=== PATIENT | male | born 1965 | race Hispanic/Latino ===

== ENCOUNTER 2018-04-12 23:08 | Emergency (ER) | payer BC ==
[~2018-04-12] VITALS: Ht 175.3 cm; Wt 140.6 kg
[2018-04-12] MEDS ORDERED: SODIUM CHLORIDE 0.9% 1000ML 1,000 ML IV STA (23:26)
[2018-04-12 23:51] LABS: CLARITY,URINE CLOUDY (CLEAR); COLOR,URINE BROWN (YELLOW)
[2018-04-12 23:52] LABS: KETONES,URINE TRACE (NEGATIVE); LEUKOCYTE ESTERASE ,URINE 1+ (NEGATIVE); NITRITE,URINE POSITIVE (NEGATIVE); PROTEIN,URINE DIPSTICK 3+ (NEGATIVE)
[2018-04-12 23:53] LABS: BILIRUBIN,URINE 1+ (NEGATIVE); URINE UROBILINOGEN 4 mg/dL (0.2 - 1)
[2018-04-12 23:58] LABS: RBC,URINE >50 /HPF (0-5); WBC,URINE (MAN) >50 /HPF (0-5)
[2018-04-13] LABS: BACTERIA,URINE FEW /HPF; EPITHELIAL CELLS,URINE RARE /LPF
[2018-04-13 00:07] LABS: BASOPHILS % 0.4 % (0.0-1.0); EOSINOPHILS # (AUTO) 0.2 (0.0-0.4); EOSINOPHILS % 1.9 % (0.0-6.0); HEMATOCRIT 38.6 % (38.2-49.6); LYMPHOCYTES # (AUTO) 1.5 (1.0-3.2); LYMPHOCYTES % 13.6 % (18.0-39.1); MEAN CORPUSCULAR HEMOGLOBIN 31.2 pg (28-32); MEAN CORPUSCULAR HGB CONC 33.7 g/dL (31-35); MEAN CORPUSCULAR VOLUME 92.6 fL (81-99); MONOCYTES # (AUTO) 0.8 (0.2-0.8); MONOCYTES % 7.8 % (4.4-11.3); NEUTROPHILS # (AUTO) 8.1 (2.1-6.9); NEUTROPHILS % 75.6 % (38.7-80.0); PLATELET COUNT 173 x10e3/uL (140-360); RED BLOOD COUNT 4.17 x10e6/uL (4.3-5.7); RED CELL DISTRIBUTION WIDTH 13.5 % (11.7-14.4)
[2018-04-13] MEDS ORDERED: CEFTRIAXONE SOD 1 GM VIAL IV STA (00:10)
[2018-04-13 00:11] LABS: INR 1.16; PROTHROMBIN TIME 13.9 seconds (11.9-14.5)
[2018-04-13 00:12] LABS: PARTIAL THROMBOPLASTIN TIME 20.3 seconds (23.8-35.5)
[2018-04-13 00:19] LABS: ALANINE AMINOTRANSFERASE 23 IU/L (0-55); ALBUMIN 4.1 g/dL (3.5-5.0); ALBUMIN/GLOBULIN RATIO 1.3 (0.8-2.0); ALKALINE PHOSPHATASE 46 IU/L (40-150); ANION GAP 16.9 mmol/L (8-16); BLOOD UREA NITROGEN 22 mg/dL (7-26); BUN/CREATININE RATIO 13 (6-25); CALCIUM 9.4 mg/dL (8.4-10.2); CARBON DIOXIDE 19 mmol/L (22-29); CHLORIDE 107 mmol/L (98-107); CREATINE KINASE 117 IU/L (30-200); EST GLOMERULAR FILTRATION RATE 42 ML/MIN (60-); GLUCOSE 156 mg/dL (74-118); MAGNESIUM 1.9 MG/DL (1.3-2.1); POTASSIUM 3.9 mmol/L (3.5-5.1); SODIUM 139 mmol/L (136-145)
[2018-04-13 01:12] VITALS: BP 136/84
== END 2018-04-13 01:10 | disposition home or self-care (01) ==
LOC: ER 23:08
DX: N30.01 Acute cystitis with hematuria (principal); B96.89 Other specified bacterial agents as the cause of diseases classified elsewhere; E11.22 Type 2 diabetes mellitus with diabetic chronic kidney disease; I12.9 Hypertensive chronic kidney disease with stage 1 through stage 4 chronic kidney disease, or unspecified chronic kidney disease; N18.2 Chronic kidney disease, stage 2 (mild)
CPT/HCPCS: 36415; 80053; 81001; 82550; 82553; 83735; 83880; 84484; 85025; 85610; 85730; 87086; 87186; 99283; J0696; J7030

== ENCOUNTER → 2024-03-09 | Day surgery (SDC) | payer BC ==
[~2024-03-09] MED LIST: AMLODIPINE BESYL5 MG PO; ASPIRIN EC81 MG PO; ATORVASTATIN CA20 MG PO; FARXIGA10 MG PO; HYOSCYAMINE SULFATE 0.5 MG/ML INJ ONE; JANUVIA100 MG PO; LIDOCAINE HCL 2% LOCAL INJ 5 ML SDV VIAL INJ ONE; LOSARTAN POTASS25 MG PO; METOCLOPRAMIDE HCL 10 MG/2ML VIAL ONE; MIDAZOLAM HCL 2 MG/2 ML VIAL ONE; NOVOLOG MI100 UNIT/1 SC; OZEMPIC0.25 MG/02 SC; PROPOFOL IV EMULSION 10 MG/ML 20 ML VIAL ONE; PROPOFOL IV EMULSION 50 ML IV ONE; TOUJEO MAX300 UNIT/1 SC; VITAMIN C1000 MG PO
[2024-03-09] MEDS: LACTATED RINGER'S 1,000 ML ONE (11:19)
[2024-03-09 13:42] VITALS: BP 146/82; PULSE 84; RESP 18; O2SAT 97
== END | disposition home or self-care (01) ==
LOC: OR 10:25
PROVIDERS: ATTEND Internal Medicine Gastroenterology
DX: R19.5 Other fecal abnormalities (principal); D12.0 Benign neoplasm of cecum; D12.2 Benign neoplasm of ascending colon; D12.3 Benign neoplasm of transverse colon; D12.4 Benign neoplasm of descending colon; K64.8 Other hemorrhoids; Z71.3 Dietary counseling and surveillance; E11.9 Type 2 diabetes mellitus without complications; I10 Essential (primary) hypertension; Z71.89 Other specified counseling; E78.5 Hyperlipidemia, unspecified; E66.01 Morbid (severe) obesity due to excess calories; M54.2 Cervicalgia; M54.9 Dorsalgia, unspecified; Z01.810 Encounter for preprocedural cardiovascular examination; Z79.84 Long term (current) use of oral hypoglycemic drugs; Z79.85 Long-term (current) use of injectable non-insulin antidiabetic drugs; Z79.4 Long term (current) use of insulin; Z79.899 Other long term (current) drug therapy; Z68.42 Body mass index [BMI] 45.0-49.9, adult
CPT/HCPCS: 36415; 45385; 82948; 93005; J1980; J2001; J2250; J2704 ×2; J2765; J7121

== ENCOUNTER → 2024-11-30 | Day surgery (SDC) | payer BC, OTHER ==
[~2024-11-30] MED LIST changes: -METOCLOPRAMIDE HCL 10 MG/2ML VIAL ONE; +MOUNJARO15 MG/0.5; -PROPOFOL IV EMULSION 50 ML IV ONE
[2024-11-30] MEDS: LACTATED RINGER'S 1,000 ML ONE (07:39)
[2024-11-30 09:32] VITALS: TEMP 98.1
[2024-11-30 10:00] VITALS: BP 119/55; PULSE 73; RESP 16; O2SAT 94
== END | disposition home or self-care (01) ==
LOC: OR 06:34
PROVIDERS: ATTEND Internal Medicine Gastroenterology
DX: Z09 Encounter for follow-up examination after completed treatment for conditions other than malignant neoplasm (principal); D12.2 Benign neoplasm of ascending colon; D12.3 Benign neoplasm of transverse colon; K64.8 Other hemorrhoids; Z71.3 Dietary counseling and surveillance; E11.9 Type 2 diabetes mellitus without complications; I10 Essential (primary) hypertension; Z71.89 Other specified counseling; I44.0 Atrioventricular block, first degree; E78.5 Hyperlipidemia, unspecified; E66.01 Morbid (severe) obesity due to excess calories; Z79.84 Long term (current) use of oral hypoglycemic drugs; Z79.85 Long-term (current) use of injectable non-insulin antidiabetic drugs; Z79.4 Long term (current) use of insulin; Z79.899 Other long term (current) drug therapy; Z68.42 Body mass index [BMI] 45.0-49.9, adult
CPT/HCPCS: 45378; 45385; 88305; 93005; J1980; J2003; J2250